=== PATIENT | male | born 1990 | race Caucasian/White ===

== ENCOUNTER 2016-11-16 12:08 | Inpatient (IN) | payer MEDICAID ==
[~2016-11-16] VITALS: Ht 170.2 cm; Wt 79.8 kg
[2016-11-16] MEDS ORDERED: SERT100T12 PO (12:25)
[2016-11-16] MEDS ORDERED: QUET25TA PO (12:25)
[2016-11-16] MEDS ORDERED: PERCT PO (12:25)
[2016-11-16 13:13] LABS: BASOPHILS % (AUTO) 0.2 % (0.0-2.0); EOSINOPHILS % (AUTO) 1.8 % (1.0-6.0); HEMATOCRIT 45.2 % (41-53); HEMOGLOBIN 14.5 g/dL (13.5-17.5); LYMPHOCYTES # (AUTO) 1.7 K/uL (1.0-4.8); MEAN CORPUSCULAR HEMOGLOBIN 28.6 pg (26.0-34.0); MEAN CORPUSCULAR VOLUME 89 fL (80-100); MONOCYTES # (AUTO) 0.4 K/uL (0.1-1.0); MONOCYTES % (AUTO) 4.7 % (2.0-9.0); NEUTROPHILS % (AUTO) 75.3 % (40.0-70.0); PLATELET COUNT (AUTO) 201 K/uL (150-450); RED BLOOD CELL COUNT(AUTO) 5.06 MIL/uL (4.50-5.90); RED CELL DISTRIBUTION WIDTH 13.4 % (11.5-14.5); WHITE BLOOD COUNT (AUTO) 9.4 K/uL (4.5-11.0)
[2016-11-16 13:23] LABS: ANION GAP 9 mmol/L (8-16); CALCIUM, TOTAL 9.1 mg/dL (8.8-10.5); CARBON DIOXIDE 28 mmol/L (22-29); CHLORIDE 102 mmol/L (98-107); CREATININE 0.94 mg/dL (0.60-1.30); GLOMERULAR FILTR. RATE CALC > 60 mL/min (>60); POTASSIUM 3.9 mmol/L (3.5-5.1); SODIUM SERUM 139 mmol/L (136-145); UREA NITROGEN, BLOOD 11 mg/dL (7-18)
[2016-11-16 13:30] LABS: ALANINE AMINOTRANSFERASE 22 U/L (12-78); ALBUMIN 4.4 g/dL (3.4-5.0); ASPARTATE AMINOTRANSFERASE 14 U/L (15-37); BILIRUBIN,TOTAL 0.4 mg/dL (0.1-1.0)
[2016-11-16] MEDS ORDERED: HALOPERIDOL 5 MG TABLET PO ONE (14:15)
[2016-11-16] MEDS ORDERED: LORazepam 2 MG TABLET PO ONE (14:15)
[2016-11-16] MEDS ORDERED: HALOPERIDOL 5 MG TABLET PO PRN (15:15)
[2016-11-16] MEDS ORDERED: ZOLPIDEM TARTRATE 10 MG TABLET PO PRN (15:15)
[2016-11-16 16:25] VITALS: BP 127/74
[2016-11-16] MEDS: LORazepam 2 MG TABLET PO PRN (19:49)
[2016-11-16] MEDS: OLANZapine 5 MG TABLET PO SCH (20:19)
[2016-11-17 01:18] VITALS: BP 122/70
[2016-11-17 08:03] VITALS: BP_SYST 124; BP_SYST 129; BP_DIAS 72; BP_DIAS 73
[2016-11-17] MEDS ORDERED: FLUoxetine HCL 20 MG CAPSULE PO SCH (09:00)
[2016-11-17 09:17] LABS: CHOL/HDL RATIO 4.3 (4.2-7.3)
[2016-11-17 12:19] VITALS: BP 120/75
[2016-11-17] MEDS: TraMADol HCL 50 MG TABLET PO PRN (12:20)
[2016-11-17 13:21] VITALS: BP 122/73
[2016-11-17] MEDS: LORazepam 2 MG TABLET PO PRN (15:16)
[2016-11-17 16:05] VITALS: BP 144/86
[2016-11-17] MEDS: OLANZapine 5 MG TABLET PO SCH (20:14)
[2016-11-18 00:29] VITALS: BP 106/75
[2016-11-18] MEDS: FLUoxetine HCL 20 MG CAPSULE PO SCH (08:18)
[2016-11-18 08:34] VITALS: BP 123/91
[2016-11-18] MEDS: LORazepam 2 MG TABLET PO PRN (12:34)
[2016-11-18 16:01] VITALS: BP 135/80
[2016-11-18 18:38] VITALS: BP 123/73
[2016-11-18] MEDS: TraMADol HCL 50 MG TABLET PO PRN (18:38)
[2016-11-18] MEDS: OLANZapine 5 MG TABLET PO SCH (21:17)
[2016-11-19 06:00] VITALS: BP 114/74
[2016-11-19] MEDS: FLUoxetine HCL 20 MG CAPSULE PO SCH (08:08)
[2016-11-19 08:31] VITALS: BP 112/60
[2016-11-19] MEDS ORDERED: FLUO-191 PO (12:05)
[2016-11-19] MEDS ORDERED: OLAN5TAB2 PO (12:05)
== END 2016-11-19 13:20 | disposition home or self-care (01) | DRG 750 ==
LOC: EMS 12:10 → EEVIPCON 12:10 → B2S 15:36
PROVIDERS: ADMIT Psychiatry & Neurology Child & Adolescent Psychiatry; ATTEND Psychiatry & Neurology Psychiatry
DX: F25.0 Schizoaffective disorder, bipolar type (principal); K51.90 Ulcerative colitis, unspecified, without complications; Z88.8 Allergy status to other drugs, medicaments and biological substances
CPT/HCPCS: 99285; G0480